=== PATIENT | female | born 1945 | race Caucasian/White ===

== ENCOUNTER → 2024-08-03 09:01 | Outpatient (REF) | payer MEDICARE, BC, SELFPAY | LOC: RCS 09:01 | PROVIDERS: ATTENDING PHYSICIAN Student in an Organized Health Care Education/Training Program | DX: I35.0 Nonrheumatic aortic (valve) stenosis (principal) | CPT/HCPCS: 93306 ==

== ENCOUNTER → 2024-08-21 08:50 | Outpatient (REF) | payer MEDICARE, BC, SELFPAY | LOC: RAD 08:50 | PROVIDERS: ATTENDING PHYSICIAN Student in an Organized Health Care Education/Training Program | DX: M85.80 Other specified disorders of bone density and structure, unspecified site (principal); M17.11 Unilateral primary osteoarthritis, right knee; E78.5 Hyperlipidemia, unspecified; I10 Essential (primary) hypertension; I35.0 Nonrheumatic aortic (valve) stenosis; M85.852 Other specified disorders of bone density and structure, left thigh | CPT/HCPCS: 77080 ==

== ENCOUNTER → 2024-10-14 10:34 | Outpatient (REF) | payer MEDICARE, BC, SELFPAY | LOC: RCS 10:34 | PROVIDERS: ATTENDING PHYSICIAN Student in an Organized Health Care Education/Training Program; FAMILY PHYSICIAN Student in an Organized Health Care Education/Training Program | DX: I35.0 Nonrheumatic aortic (valve) stenosis (principal); R06.02 Shortness of breath | CPT/HCPCS: 93017 ==

== ENCOUNTER → 2025-03-04 09:04 | Outpatient (REF) | payer MEDICARE, BC, SELFPAY | LOC: RCS 09:04 | PROVIDERS: ATTENDING PHYSICIAN Student in an Organized Health Care Education/Training Program; FAMILY PHYSICIAN Student in an Organized Health Care Education/Training Program | DX: I35.0 Nonrheumatic aortic (valve) stenosis (principal) | CPT/HCPCS: 93306 ==

== ENCOUNTER 2025-03-17 06:11 | Emergency (ER) | payer MEDICARE, BC, SELFPAY ==
[2025-03-17 06:17] VITALS: BP 174/80
[2025-03-17 06:20] VITALS: BMI 31.0
--- NOTE | 2025-03-17 07:00 | ED.GENMED ---
History of Present Illness
General
Chief Complaint: Back Pain
Time Seen by Provider: 03/17/25 06:27
History of Present Illness
History of Present Illness:
80-year-old female with history of hypertension, hyperlipidemia, and aortic stenosis presents to the emergency department for evaluation of left-sided low back pain for the past 3 days. Denies falls or trauma. Taking ibuprofen with minimal
improvement. No fevers or chills. No chest pain or shortness of breath. Currently undergoing evaluation for TAVR with cardiology as an outpatient
Past History
Past History
ED Past Medical History: None
ED Past Surgical History: None
Review of Systems
Review of Systems
Allergies reviewed?: Yes
All Other Systems: ROS reviewed and negative except as documented in HPI and ROS
Phy Exam
Physical Exam
Physical Exam:
GEN: Well appearing, NAD, WDWN
HEENT: Oral mucosa moist, no scleral icterus
Cardiac: Regular rate
Lung: No respiratory distress, no tachypnea
MSK: No gross deformity or injuries. No midline lumbar spine tenderness, focal tenderness to the left upper gluteal region, pain worse with any degree of lumbar range of motion
Skin: Good color, no pallor or jaundice, no rashes
Neuro: AO x3, moves all extremities freely, lower extremity sensation and motor function intact in all quesada
Psych: Calm, cooperative
Course
Orders/Labs/Results
Orders:
Orders
03/17/25 07:05
Ketorolac [Toradol] 30 mg IM NOW STA
Tramadol HCl [Ultram] 50 mg PO NOW STA
03/17/25 07:44
Urinalysis Reflex To Culture Urgent
Date Specimen was Collected: 03/17/25
Time Specimen was Collected: 07:42
Urine Microscopic Reflex Cult Urgent
Urine Culture Urgent
MARIA ELENA Source: U
Specimen Description:
Date Specimen was Collected: 03/17/25
Time Specimen was Collected: 07:42
03/17/25 08:06
Fosfomycin [Monurol] 3 gm PO ONCE ONE
Abnormal Lab Results
03/17/25
07:44
Ur Occult Blood Reflex 2+ A
(Negative)
Leukocyte Esterase Rfl 2+ A
(Negative)
Urine RBC 7-10 A /HPF
(0-2)
Urine WBC (Reflex) 16-20 A /HPF
(0-5)
Urine Bacteria (Reflex) Few A
(Negative)
Urine Albumin (Reflex) 1+ A
(Neg - Trace)
Vital Signs
Initial and Last Documented VS:
Initial Vital Signs
Temp Pulse Resp BP Pulse Ox
98.7 F 72 22 174/80 98
03/17/25 06:17 03/17/25 06:17 03/17/25 06:17 03/17/25 06:17 03/17/25 06:17
Last Documented Vital Signs
Temp Pulse Resp BP Pulse Ox
98.7 F 72 22 174/80 98
03/17/25 06:17 03/17/25 06:17 03/17/25 06:17 03/17/25 06:17 03/17/25 07:00
MDM/Problems Addressed
MDM/Problems Addressed:
Patient's low back pain is most likely mechanical given easy reproducibility on exam, no evidence of spinal canal impingement given lack of radicular symptoms. She did note having mild dysuria and urgency and urinalysis is suspicious for UTI thus
we will treat with single dose of fosfomycin. In regards to her low back pain we will treat with NSAIDs and tramadol supportively as she had good relief in the ED. She had no traumatic injuries warranting imaging and now neurologic findings
concerning for cauda equina
*Pulse Oximetry
SaO2: 98
Oxygen Mode of Delivery: Room air
Patient hypoxic: no
*Critical Care Note
Total Time (30-74mins, 75-104mins- exclusive of procedures): Not Applicable
ED Attending Note
-
Portions of this chart may have been created with voice recognition software.� Occasional wrong word or��sound alike� substitutions may have occurred due to the inherent limitations of voice recognition software.
Discharge Plan
Departure
Patient Disposition: Home (Routine Discharge)
Date of Disposition: 03/17/25
Time of Disposition: 08:06
Patient with high blood pressure during this ER visit?: Yes
Discharge Problem:
Low back pain, Acute UTI
Instructions: Low Back Pain (DC)
Prescriptions:
New
meloxicam 7.5 mg tablet
7.5 mg PO DAILY Qty: 10 0RF
tramadol 50 mg tablet
50 mg PO Q8H PRN (Reason: Pain) Qty: 8 0RF
No Action
meloxicam 7.5 MG tablet
7.5 mg PO BID Qty: 14 0RF
Referrals:
Kalyn Gorman MD [Family Provider, Internal Medicine]
Interventions
Interventions:
*Risk Screen - Suicide Last Done: 03/17/25 06:17
*Neglect/Abuse Screening Last Done: 03/17/25 06:17
*Nursing Disposition Last Done: 03/17/25 08:30
Discharge Date and Time
Discharge Date/Time: 03/17/25 08:30
Print Language: DOMINICAN
[2025-03-17] MEDS: TORADOL 30 MG IM (07:37)
[2025-03-17] MEDS: ULTRAM 50 MG PO (07:39)
[2025-03-17 07:54] LABS: Urine Character Clear (Clear)
[2025-03-17 08:05] LABS: Urine White Cell 16-20 /HPF (0-5)
[2025-03-17] MEDS: MONUROL 3 GM PO (08:15)
== END 2025-03-17 08:30 | disposition home or self-care (01) ==
LOC: EMR 06:11
PROVIDERS: Physician Assistant; EMERGENCY PHYSICIAN Emergency Medicine; FAMILY PHYSICIAN Student in an Organized Health Care Education/Training Program
DX: N39.0 Urinary tract infection, site not specified (principal); M54.50 Low back pain, unspecified; I10 Essential (primary) hypertension; E78.5 Hyperlipidemia, unspecified
CPT/HCPCS: 96372; 99284; 81003; 81015; 87086

== ENCOUNTER 2025-03-19 01:06 | Inpatient (IN) | payer MEDICARE, BC, SELFPAY ==
[2025-03-18] VITALS (7 sets, daily range): BP systolic 149–189; BP diastolic 53–103; BMI 31.8
--- NOTE | 2025-03-18 17:13 | ED.GENMED ---
History of Present Illness
General
Chief Complaint: Back Pain
Source: patient and family
Exam Limitations: none
Time Seen by Provider: 03/18/25 17:03
Nursing documentation reviewed up to this point in time: agreed with
History of Present Illness
History of Present Illness:
Patient to ED wt complaint of worsening back pain, nausea, vomiting. She was seen in ED yesterday for same, treated for susppected UTI with fosfomycin. Given rx for meloxicam and tramadol for low back pain. She feels she is sensitive to the
medications and this is causing her n/v. Daughter states she is unable to ambulate or transfer at home due to her back pain. Denies fever, chills. Brought to ED via EMS for eval.
Past History
Past History
ED Past Medical History: HTN and Hypercholesterolemia
ED Past Surgical History: Cholecystectomy
Review of Systems
Review of Systems
Allergies reviewed?: Yes
All Other Systems: ROS reviewed and negative except as documented in HPI and ROS
Constitutional: Reports no symptoms
EENT: Reports no symptoms
Respiratory: Reports no symptoms
ABD/GI: Reports nausea, vomiting and other (epigastric burning)
: Reports dysuria
Musculoskeletal: Reports back pain (low back pain)
Skin: Reports no symptoms
Neurological: Reports weakness
Psychiatric: Reports no symptoms
Phy Exam
General Physical Exam
General Presentation: moderate distress
General age: appears stated age
General Skin: warm and dry
General Habitus: normal
General Mental: alert
Cardiovascular Exam
Cardiovascular Exam: regular rate/rhythm and no edema
Pulmonary Exam
Pulmonary Exam: lungs clear and no respiratory distress
Gastrointestinal Exam
Gastrointestinal Exam: normal bowel sounds, soft, no organomegaly, no pulsatile mass, non distended and no cva tenderness
Palpation: generalized: Mild tenderness
Musculoskeletal Exam
Musculoskeletal Exam: back pain (low back pain) and neuro vasc intact
Skin Exam
Skin Exam: normal color, warm/dry and no rash
Psychiatric Exam
Psychiatric Exam: normal mood/affect
Course
Orders/Labs/Results
Orders:
Orders
03/18/25 17:13
CT Abd/pelvis W Iv Cont Urgent
Comment:
Reason For Exam: back pain, vomiting
03/18/25 17:14
0.9% Sodium Chloride 1000 ml [Nss] 1,000 ml IV BOLUS
Ondansetron Injectable [Zofran] 4 mg IV NOW STA
Pantoprazole [Protonix IV] 40 mg IV NOW STA
03/18/25 17:47
Basic Metabolic Panel Urgent
Complete Blood Count/With Diff Urgent
Lipase Urgent
03/18/25 18:02
Urinalysis Reflex To Culture Urgent
Date Specimen was Collected: 03/18/25
Time Specimen was Collected: 18:00
Urine Microscopic Reflex Cult Urgent
Urine Culture Urgent
MARIA ELENA Source: U
Specimen Description:
Date Specimen was Collected: 03/18/25
Time Specimen was Collected: 18:00
03/18/25 20:05
Alcohol Urgent
Comprehensive Metabolic Panel Urgent
03/18/25 23:09
Morphine Sulfate 4 mg IV NOW STA
Ondansetron Injectable [Zofran] 4 mg IV NOW STA
03/18/25 23:15
Ketorolac [Toradol] 15 mg IV NOW STA
03/18/25 23:34
Add On- LAB Urgent
Comments:: alcohol
Tests Added?: serum alcohol
03/18/25 23:47
Admit/Transfer Patient As Directed
Co-Sign Provider:
Level of Care: Inpatient admission
Assign to:: Medical/Surgical
Physician / Group: hospitalist
Diagnosis: UTI
Reason for Hospitalization: UTI
Expected length of stay greater than two midnights?: Yes
ELOS- Estimated Length of Stay in days: 2
I certify the patient meets the requirements for IP care: Yes
03/18/25 23:48
Code Status As Directed
Resuscitation Status: Full Code
PRN Pain Medication Management As Directed
May give lesser potent ordered pain med per pt: Yes
preference::
Protocol:: Medication orders for pain may be administered in a
manner that supports deferring to patient preference
when the pt is:
- Requesting an ordered lesser potent pain medication.
Least to most potent pain medications are defined
as: acetaminophen < NSAID < tramadol < opioids
(morphine, oxycodone, hydromorphone).
- Requesting a lesser dose of the same medication IF
ORDERED.
- Requesting a less intrusive route of administration
if both routes are prescribed by the provider (PO <
IV).
03/19/25 00:00
CefTRIAXone [Rocephin] 1,000 mg IV Q24H
MetroNIDAZOLE [Flagyl] 500 mg PO Q8
Sterile Water [Sterile Water For Injection] 10 ml IV Q24H
Abnormal Lab Results
03/18/25 03/18/25 03/18/25
17:47 18:02 20:05
Absolute Lymphs (auto) 0.7 L 10^3/uL
(1.2-3.4)
Neutrophils % 83.4 H %
(42.2-75.2)
Lymphocytes % 9.4 L %
(20.5-51.1)
Chloride 110 H mmol/L
(98-107)
Glucose 120 H mg/dl 137 H mg/dl
(70-99) (70-99)
Urine Ketones 3+ A
(Negative)
Ur Occult Blood Reflex 4+ A
(Negative)
Leukocyte Esterase Rfl 2+ A
(Negative)
Urine RBC 3-6 A /HPF
(0-2)
Urine Bacteria (Reflex) Few A
(Negative)
Urine Albumin (Reflex) 2+ A
(Neg - Trace)
03/18/25 17:47
03/18/25 20:05
Vital Signs
Initial and Last Documented VS:
Initial Vital Signs
Temp Pulse Resp BP Pulse Ox
98.7 F 95 16 186/103 96
03/18/25 12:55 03/18/25 12:55 03/18/25 12:55 03/18/25 12:55 03/18/25 12:55
Last Documented Vital Signs
Temp Pulse Resp BP Pulse Ox
99.4 F 75 18 189/67 93
03/18/25 19:08 03/18/25 23:30 03/18/25 23:30 03/18/25 22:23 03/18/25 23:30
*Radiology
Radiology exam reviewed: radiology read reviewed
*Pulse Oximetry
SaO2: 96
Oxygen Mode of Delivery: Room air
Patient hypoxic: no
*Critical Care Note
Total Time (30-74mins, 75-104mins- exclusive of procedures): Not Applicable
Update Note
Update Note:
Patient to ED with complaint of worsening low back pain, abdominal pain, nausea and vomiting. SHe was seen in eD yesterday for her back pain. Reports relief with Chito meds while in ED. She was discharged home on meloxicam and tramadol. Given dose
of fosfomycin prior to discharge for suspected UTI. (Culture result reviewed: mixed ariel, most likely contamination) SHe took meds as prescribed and then developed abs. pain n/v. Given IVF and zofran in ED. Nausea improved. Protonix IV given
for complaint of esophageal irritation and she notes improvement in those sympotms. Abdominal CT report reviewed. Gastritis noted. Also with thickening of ascending colon, suspect colitis although adenocarcinoma is a possibilty. Last colonoscopy
1 year ago, normal. She continues to complain of her low back pain, declines any narcotics. Has used ibuprofen in the past with success but due to her current symptoms and findings of gastritis will give Toradol IV.. SHe is unable to ambulate
without max assist due to her pain. Will admit to the hospitalist for ambulatory dysfunction, gastritis, colitis.
ED Attending Note
-
Portions of this chart may have been created with voice recognition software.� Occasional wrong word or��sound alike� substitutions may have occurred due to the inherent limitations of voice recognition software.
Discharge Plan
Departure
Patient Disposition: Admit
Date of Disposition: 03/18/25
Time of Disposition: 23:22
Presentation/result/management discussed w/ accepting MD/DO: Hospitalist
Patient with high blood pressure during this ER visit?: No
Covid-19: Not Applicable
Discharge Problem:
Ambulatory dysfunction, Back pain, Gastritis, Colitis
Prescriptions:
No Action
losartan 50 mg tablet
50 mg PO DAILY
atorvastatin 10 mg tablet
10 mg PO DAILY
Theragen Tablet
1 tab PO DAILY
ibuprofen 200 mg Tablet
400 mg PO Q6HPRN PRN (Reason: mild pain)
cholecalciferol (vitamin D3) 25 mcg (1,000 unit) Tablet
25 mcg PO DAILY
cranberry
2 cap PO DAILY
tramadol 50 mg tablet
50 mg PO Q8HPRN PRN (Reason: mild pain)
meloxicam 7.5 mg tablet
7.5 mg PO HS
Referrals:
Kalyn Gorman MD [Family Provider, Internal Medicine]
Interventions
Interventions:
*Risk Screen - Suicide Last Done: 03/18/25 12:55
*General Assessment Last Done: 03/18/25 17:11
*Neglect/Abuse Screening Last Done: 03/18/25 12:55
*ED- Fall Risk Assessment Last Done: 03/18/25 17:11
*ED COVID-19 Vaccine History Last Done: 03/18/25 17:11
ED-Musculoskeletal Assessment Last Done: 03/18/25 18:11
Discharge Date and Time
Print Language: SETSWANA
[2025-03-18] MEDS: NSS 1000 IV (17:55)
[2025-03-18] MEDS: ZOFRAN 4 MG IV (17:56)
[2025-03-18] MEDS: PROTONIX IV 40 MG IV (17:56)
[2025-03-18 18:11] LABS: Urine Character Clear (Clear)
[2025-03-18 18:15] LABS: Hematocrit 38.9 % (37.0-47.0); Hemoglobin 14.0 g/dL (12.0-16.0); Mean Corp Hgb Conc. 36.0 g/dL (33.0-37.0); Mean Corpuscular Volume 83.1 fL (81.0-99.0); Nucleated Red Blood Cells % 0 %; Platelet Count 222 10^3/uL (130-400); Red Cell Dist. Width 12.6 % (11.5-14.5)
[2025-03-18 18:23] LABS: Urine Squamous Cell 0-2 /LPF (Few)
[2025-03-18 18:33] LABS: Blood Urea Nitrogen 16 mg/dl (7-17); Calcium 9.7 mg/dl (8.4-10.2); Carbon Dioxide 24 mmol/L (22-30); Chloride 107 mmol/L (98-107); Estimated Creatinine Clearance 67 ml/min; Glucose 120 mg/dl (70-99); Lipase 82 U/L (23-300); Sodium 136 mmol/L (135-145); eGFR > 60.00
[2025-03-18 20:30] LABS: ALT (SGPT) 29 U/L (0-35); AST (SGOT) 26 U/L (14-36); Albumin 3.7 g/dl (3.5-5.0); Alkaline Phosphatase 47 U/L (38-126); Blood Urea Nitrogen 14 mg/dl (7-17); Calcium 8.8 mg/dl (8.4-10.2); Carbon Dioxide 24 mmol/L (22-30); Chloride 110 mmol/L (98-107); Estimated Creatinine Clearance 67 ml/min; Glucose 137 mg/dl (70-99); Potassium 3.8 mmol/L (3.5-5.1); Sodium 137 mmol/L (135-145); Total Protein 6.3 g/dl (6.3-8.2); eGFR > 60.00
[2025-03-18] MEDS: TORADOL 15 MG IV (23:18)
--- NOTE | 2025-03-18 23:52 | HPS.HSE ---
Family Physician
-
Family Physician: Kalyn Gorman MD
Chief Complaint
-
L lank pain
History of Present Illness
80yo F with PMHx of DARVIN-BSO, HepB, HLD, HTN, frequent UTI, active on baseline (walks and does Vahid) came with continued L flank pain. Hd this for 4 days now. Pain not radiating and pretty constant. Alsonoticed some burning during urination. CT in
ED showed possible ascending colitis and urinary bladder wall thickening. Also signs of liver cirrhosis and portal HTN that patient is not aware about.
No neurological deficit noted.
Medical History
Past Medical History
Past Medical History: Reports Other
Additional Past Medical History:
see HPI
Past Surgical History: Reports Other
Additional Past Surgical History:
See HPI
Social History
Tobacco: Non-smoker
Alcohol: None
Drug: None
Family History
Family History: Not pertinent
Allergies / Home Medications
Allergies reflects when Allergies were last updated in [employer].
Home Medications with original date entered in [employer]
Allergy/Medication List:
Allergies
Allergy/AdvReac Type Severity Reaction Status Date / Time
NARCOTICS Allergy Nausea / Uncoded 08/03/17 18:16
Vomiting
NKA - No Known Allergies Allergy Unknown Uncoded 08/03/17 18:11
Home Medications
atorvastatin 10 mg tablet 10 mg PO DAILY 03/18/25
cholecalciferol (vitamin D3) 25 mcg (1,000 unit) tablet 25 mcg PO DAILY 03/18/25
cranberry 2 cap PO DAILY 03/18/25
ibuprofen 200 mg tablet 400 mg PO Q6HPRN PRN mild pain 03/18/25
losartan 50 mg tablet 50 mg PO DAILY 03/18/25
meloxicam 7.5 mg tablet 7.5 mg PO HS 03/18/25
therapeutic multivitamin 1 tab PO DAILY 03/18/25
tramadol 50 mg tablet 50 mg PO Q8HPRN PRN mild pain 03/18/25
Review of Systems
-
History Source: Patient and Family
A 12 point ROS was completed and negative except as noted: Yes
: Reports See HPI
Physical Exam
Vital Signs
Vital Signs
Temp Pulse Resp BP Pulse Ox
99.4 F 75 18 189/67 93
03/18/25 19:08 03/18/25 23:30 03/18/25 23:30 03/18/25 22:23 03/18/25 23:30
Physical Exam
General: Well Developed, Well Nourished and No Apparent Distress
HEENT: NormoCephalic, Anicteric and Moist mucous membranes
Respiratory: Clear; No Wheezes, Rhonchi or Crackles
Cardiac: S1/S2, Regular Rhythm and Murmur
GI: Soft, Non Tender and Non Distended
Genito-urinary: Costovertebral angle tend
Musculoskeletal: No Clubbing, No Cyanosis and No Edema
Skin: Warm
Neuro: Awake, Alert, Oriented and AO x 3
Psych: Calm
Laboratory Results
-
03/18/25 17:47
03/18/25 20:05
Laboratory Results
Total Bilirubin 0.8 mg/dl (0.2-1.3) 03/18/25 20:05
AST 26 U/L (14-36) 03/18/25 20:05
ALT 29 U/L (0-35) 03/18/25 20:05
Alkaline Phosphatase 47 U/L (38-126) 03/18/25 20:05
Lipase 82 U/L (23-300) 03/18/25 17:47
Data Reviewed
-
CT Scan: Report Reviewed by me
Lab Data: Labs Reviewed by me
Impression/Plan
-
A/P
#L flank pain 2/2 UTI
#Ascending colitis
Will need colonoscopy upon resolution - patient and granddaughter verbalized understanding of the instructions, they will schedule with familiar GI in [facility].
Start Ceftriaxone/Flagyl, expect pain to improve with Abx
With no diarrhea - no concern for c.diff
Follow Ucx
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
#Gastritis
new findings
Outpatient GI
Patient not consuming alcohol
Has advanced - possible congestive hepatic cirrhosis?
PPI
#
already follows with card for placement for valve replacement
#MV prolapse
asymptomatic
#Essential HTN
#HLD
cont home meds
#chronic T11, L1 vertebral Fx
tylenol
DVT ppx lovenox
Full code
I have spent at least 78min admitting the patient
[2025-03-19 00:33] VITALS: BP 186/73
[2025-03-19 00:36] VITALS: BP 186/73
[2025-03-19] MEDS: FLAGYL 500 MG PO ×2 (00:38→07:58)
[2025-03-19] MEDS: STERILE WATER FOR INJECTION 10 ML IV (00:41)
[2025-03-19] MEDS: ROCEPHIN 1000 MG IV (00:41)
[2025-03-19 01:00] VITALS: BP 157/72
[2025-03-19 01:38] VITALS: BMI 30.5
[2025-03-19 01:50] VITALS: BP 148/74
--- NOTE | 2025-03-19 01:55 | PTCARENOTE ---
Received patient from ED via stretcher. Patient ambulated from stretcher to bed x1 assist with rolling walker. Oriented patient to room and placed call mullins within reach.
[2025-03-19 07:31] LABS: Hematocrit 36.7 % (37.0-47.0); Hemoglobin 12.7 g/dL (12.0-16.0); Mean Corp Hgb Conc. 34.6 g/dL (33.0-37.0); Mean Corpuscular Volume 86.8 fL (81.0-99.0); Nucleated Red Blood Cells % 0 %; Platelet Count 174 10^3/uL (130-400); Red Cell Dist. Width 12.8 % (11.5-14.5)
[2025-03-19 07:35] VITALS: BP 140/66
[2025-03-19 07:48] LABS: ALT (SGPT) 28 U/L (0-35); AST (SGOT) 27 U/L (14-36); Albumin 3.8 g/dl (3.5-5.0); Alkaline Phosphatase 50 U/L (38-126); Blood Urea Nitrogen 15 mg/dl (7-17); Calcium 9.0 mg/dl (8.4-10.2); Carbon Dioxide 23 mmol/L (22-30); Chloride 110 mmol/L (98-107); Estimated Creatinine Clearance 49 ml/min; Glucose 98 mg/dl (70-99); Potassium 3.8 mmol/L (3.5-5.1); Sodium 140 mmol/L (135-145); Total Protein 6.4 g/dl (6.3-8.2); eGFR > 60.00
[2025-03-19] MEDS: PROTONIX 40 MG PO (07:57)
[2025-03-19] MEDS: COZAAR 50 MG PO (07:57)
[2025-03-19] MEDS: LIPITOR 10 MG PO (07:58)
[2025-03-19] MEDS: THERAGRAN 1 TABLET PO (07:58)
--- NOTE | 2025-03-19 12:08 | W.PN.HOSP.TC ---
Today's Communication/Plan
-
PT consult
Discharge
Assessment / Plan
Assessment / Plan
Gen-AAOx3, NAD
HEENT-NC, AT, anicteric, clear oral mm
Neck-supple
CV-reg, no M, +S1/S2
Lungs-clear B/L
Abd-soft, NT, ND
Ext-no edema
Musculoskeletal-no cyanosis, clubbing
Skin-warm and dry
Neuro-grossly non-focal
Psych-calm, cooperative
Left posterior pelvic pain -with pain across the lower back. Differential diagnosis includes lumbar pain due to vertebral compression fracture from osteoporosis versus musculoskeletal pain versus other. She does not have flank pain, no flank
tenderness on exam. CT scan shows chronic superior endplate fractures of T11 and L1 as well as sacralization of L5. Severe facet joint arthrosis at L4/L5 with associated grade 1 anterolisthesis.
Recommend outpatient follow-up with PCP. Use NSAIDs. Consult physical therapy. Stop meloxicam, discussed with patient. Will send a prescription for ibuprofen.
Recommend outpatient treatment for osteoporosis and vertebral compression fractures. Patient denies any recent falls. Had a similar pain in her lower left back many years ago.
UTI -no evidence of pyelonephritis. Urine culture unhelpful for Monday. Transition to ciprofloxacin on discharge.
Possible hepatic cirrhosis -noted on CT. Recommend outpatient follow-up with GI clinic. Does have fatty liver disease. History of hepatitis B virus infection that was treated.
Patient unaware of cirrhosis diagnosis. Recommend weight loss.
Hyperlipidemia -atorvastatin.
Essential hypertension -continue meds.
Obesity due to excess calories
Full code
Dispo -anticipate discharge home today. Outpatient follow-up. Updated family at the bedside.
Anticipated Discharge: Today
Subjective/Interval History
-
Date of Service: March 19, 2025
Patient seen and examined. Complaining of left posterior pelvic pain. Pain improved today compared to yesterday.
Objective Data
-
Labs:
Laboratory Results
03/19/25
06:01
WBC 5.7
Hgb 12.7
Hct 36.7 L
Plt Count 174 D
Sodium 140
Potassium 3.8
Chloride 110 H
Carbon Dioxide 23
BUN 15
Creatinine 0.8
Glucose 98
Calcium 9.0
Total Bilirubin 0.9
AST 27
ALT 28
Alkaline Phosphatase 50
Vital Signs:
Vital Signs
Temp Pulse Resp BP Pulse Ox
97.6 F 77 18 140/66 97
03/19/25 07:35 03/19/25 07:35 03/19/25 07:35 03/19/25 07:35 03/19/25 08:00
I&O
03/18/25 03/19/25 03/20/25
06:59 06:59 06:59
Intake Total 240 / 240
Balance 240 / 240
Review of Systems
-
History Source: Patient
All other systems: Reviewed and negative
--- NOTE | 2025-03-19 12:19 | W.DS.TRANS ---
DC Summary - Traffic Engineer
-
Discharge Instructions:
Discharge Diagnosis/Procedures UTI, back pain
Diet Low Cholesterol,Low Fat
Activity As tolerated
Driving Restrictions As prior to admission
Bathing Restrictions None
Instructions:
Stand-Alone Forms:
Changes to Home Medications: Yes
Discharge Medications:
DC Medications w/original date entered in [facility]
atorvastatin 10 mg tablet 10 mg PO DAILY High Cholesterol 03/18/25
cholecalciferol (vitamin D3) 25 mcg (1,000 unit) tablet 25 mcg PO DAILY Supplement 03/18/25
losartan 50 mg tablet 50 mg PO DAILY Blood Pressure 03/18/25
therapeutic multivitamin 1 tab PO DAILY Supplement 03/18/25
tramadol 50 mg tablet 50 mg PO Q8HPRN PRN mild pain 03/18/25
ciprofloxacin HCl 500 mg tablet 500 mg PO BID #6 tabs 03/19/25
ibuprofen 800 mg tablet 800 mg PO TID PRN Pain #30 tabs 03/19/25
polyethylene glycol 3350 17 gram oral powder packet 17 g PO DAILYPRN PRN constipation #0 ea 03/19/25
Home Medication Changes
Stop meloxicam
Pending Results: No
--- NOTE | 2025-03-19 14:06 | VNURNOTE ---
Addendum entered by Re Kincaid RN 03/19/25 14:07:
Liaison attempted to call patient to explain [facility] services, no answer.
Original Note:
Patient DC'ed prior to liaison meeting w/her. Referral for [facility] entered in [facility].
--- NOTE | 2025-03-19 14:31 | CM ---
Alert awake oriented patient who lives [place] in a 2 town house 4 steps to enter and 16 steps to bed/bathroom. She is independent in [facility].She does not drive .No DME hx. IMM reviewed pt agrees with karissahernandorraheem son Hernan will drive
her home today .Offered VN she requested [facility] Liaison set up VN .
No VN in past . No SNF hx
Pharmacy [facility] on [address]
PCP Dr Pate
PLAN Home with [facility]
== END 2025-03-19 13:58 | disposition home health service (06) | DRG 690 ==
LOC: 4 EAST ACU 01:06
PROVIDERS: Nurse Practitioner; ADMITTING PHYSICIAN Internal Medicine; ATTENDING PHYSICIAN Hospitalist; EMERGENCY PHYSICIAN Emergency Medicine; FAMILY PHYSICIAN Student in an Organized Health Care Education/Training Program
DX: N39.0 Urinary tract infection, site not specified (principal); I10 Essential (primary) hypertension; E66.09 Other obesity due to excess calories; Z68.30 Body mass index [BMI] 30.0-30.9, adult; K74.60 Unspecified cirrhosis of liver
CPT/HCPCS: 74177; 80048; 80053; 81003; 81015; 82077; 83690; 85025; 87086; 96361; 96374; 96375; 96376; 97162; 99284; Q9967

== ENCOUNTER → 2025-04-01 10:34 | Outpatient (REF) | payer MEDICARE, BC, SELFPAY | LOC: MRI 3T 10:34 | PROVIDERS: ATTENDING PHYSICIAN Student in an Organized Health Care Education/Training Program; FAMILY PHYSICIAN Student in an Organized Health Care Education/Training Program | DX: K74.69 Other cirrhosis of liver (principal); Z86.19 Personal history of other infectious and parasitic diseases; K83.8 Other specified diseases of biliary tract | CPT/HCPCS: 74183; A9575 ==

== ENCOUNTER → 2025-04-04 09:37 | Outpatient (REF) | payer MEDICARE, BC, SELFPAY | LOC: MRI 09:37 | PROVIDERS: ATTENDING PHYSICIAN Student in an Organized Health Care Education/Training Program; FAMILY PHYSICIAN Student in an Organized Health Care Education/Training Program | DX: K74.69 Other cirrhosis of liver (principal); Z86.19 Personal history of other infectious and parasitic diseases; K83.8 Other specified diseases of biliary tract | CPT/HCPCS: 74181; 76391 ==

== ENCOUNTER → 2025-05-07 10:46 | Outpatient (REF) | payer MEDICARE, BC, SELFPAY | LOC: RAD 10:46 | PROVIDERS: ATTENDING PHYSICIAN Student in an Organized Health Care Education/Training Program; REFERRING PHYSICIAN Student in an Organized Health Care Education/Training Program | DX: K63.9 Disease of intestine, unspecified (principal) | CPT/HCPCS: 74177; Q9967 ==

== ENCOUNTER 2025-06-20 06:16 | Day surgery (SDC) | payer MEDICARE, BC, SELFPAY ==
[2025-06-20 09:30] VITALS: BP 151/100; BMI 30.1
[2025-06-20 09:45] VITALS: BMI 30.1
[2025-06-20 11:43] VITALS: BP 121/63
[2025-06-20 11:45] VITALS: BP 125/72
[2025-06-20 12:00] VITALS: BP 134/71
[2025-06-20 12:15] VITALS: BP 150/76
== END 2025-06-20 12:35 | disposition home or self-care (01) ==
LOC: SDS 06:16
PROVIDERS: ATTENDING PHYSICIAN Student in an Organized Health Care Education/Training Program
DX: K63.89 Other specified diseases of intestine (principal); K57.30 Diverticulosis of large intestine without perforation or abscess without bleeding; R93.3 Abnormal findings on diagnostic imaging of other parts of digestive tract
CPT/HCPCS: 45380; 88305

== ENCOUNTER 2025-08-15 06:07 | Day surgery (SDC) | payer MEDICARE, BC, SELFPAY ==
[2025-08-15 11:30] VITALS: BP 122/79; BMI 29.6
[2025-08-15 11:48] VITALS: BMI 29.6
[2025-08-15 13:10] VITALS: BP 108/72
[2025-08-15 13:15] VITALS: BP 119/65
[2025-08-15 13:30] VITALS: BP 114/102
== END 2025-08-15 13:56 | disposition home or self-care (01) ==
LOC: SDS 06:07
PROVIDERS: ATTENDING PHYSICIAN Internal Medicine Gastroenterology
DX: K83.8 Other specified diseases of biliary tract (principal); K31.89 Other diseases of stomach and duodenum; R93.5 Abnormal findings on diagnostic imaging of other abdominal regions, including retroperitoneum
CPT/HCPCS: 43238; 43239; 88305